=== PATIENT | female | born 1990 | race Caucasian/White ===

== ENCOUNTER 2020-01-17 12:47 | Outpatient (CLI) | payer OTHER, SELFPAY ==
--- NOTE | ~2020-01-17 | US_ITS ---
EXAMINATION: US OB /maternal detail DATE: 01/17/2020 13:48 INDICATION: anatomic survey. TECHNIQUE: Real-time ultrasound of the pelvis was performed. COMPARISON: Ultrasound 10/26/2019 FINDINGS: There is a single living fetus in breech presentation. The placenta is fundal and posterior. h eart rate is moderate 54 beats per minute (bpm). The amniotic fluid volume is subjectively normal. The following biometric data were obtained: Biparietal diameter (BPD): 4.6 cm; head circumference (HC): 17.3 cm; abdominal circumference (AC): 15 .6 cm; femur length (FL): 3.0 cm. These measurements are concordant. Estimated weight is 330 g +/- 50 g, which correlates with 41st percentile when 06/04/20 is used a s estimated date of delivery. As single measurements, these parameters are each equal to the following estimated gestational ages: BPD: 19 weeks 6 days. HC: 19 weeks 6 days. AC: 20 weeks 5 days. FL: 19 weeks 2 days. estimated gestational age based solely on measurements from this exam is 20 weeks 0 days +/- 1 weeks 3 days. The cerebral ventricles, cerebellum, cisterna magna, nuchal fold, and visualized portions of the spin e are normal. The heart is normal. The diaphragm, stomach, kidneys, and bladder are normal. There are two umbilical arteries to yield a 3-vessel cord. The cord insertion is normal. IMPRESSION: 1. Single living fetus in breech presentation. 2. Estimated weight is 330 g +/- 50 g, which correlates with 41st percentile when 06/04/20 is us ed as estimated date of delivery. Note that the ultrasound from 10/26/2019 demonstrated an estimated d ate of delivery of 06/06/2020. Reviewed, dictated and finalized at location A. IMPRESSION: 1. Single living fetus in breech presentation. 2. Estimated weight is 330 g +/- 50 g, which correlates with 41st percen tile when 06/04/20 is used as estimated date of delivery. Note that the ultrasoun d from 10/26/2019 demonstrated an estimated date of delivery of 06/06/2020.
== END 2020-01-17 12:48 | disposition home or self-care (01) ==
LOC: ANHIMG 12:55
PROVIDERS: Visit Provider Obstetrics & Gynecology Gynecology
DX: O32.1XX0 Maternal care for breech presentation, not applicable or unspecified (principal); Z3A.20 20 weeks gestation of pregnancy
CPT/HCPCS: 76805

== ENCOUNTER 2020-05-23 11:59 | Outpatient (CLI) | payer OTHER, SELFPAY ==
[2020-05-23] VITALS (9 sets, daily range): BP systolic 132–146; BP diastolic 72–87; PULSE 68–76
[2020-05-23 13:00] LABS: Basophils Percent Auto 0.3 % (0.2-1.2); Eosinophils Percent Auto 0.5 % (0-4.4); Hematocrit 37.6 % (37.0-47.0); Hemoglobin 12.7 g/dL (12.0-15.0); Immature Granulocyte Absolute 0.04 K/mm3 (0.00-0.031); Immature Granulocyte Percent A 0.5 % (0-0.5); Immature Platelet Fraction Pct 19.4 % (0.9-11.2); Lymphocytes Absolute Auto 1.85 K/mm3 (0.9-3.2); Lymphocytes Percent Auto 25.1 % (18.3-44.2); Mean Corpuscular HGB Conc 33.8 g/dl (32-36); Mean Corpuscular Hemoglobin 29.1 pg (26-34); Mean Corpuscular Volume 86.2 fl (80-100); Mean Platelet Volume 13.5 fl (7.4-10.4); Monocytes Absolute Auto 0.6 K/mm3 (0.1-0.6); Monocytes Percent Auto 7.7 % (2.6-8.5); Neutrophils Absolute Auto 4.8 K/mm3 (1.3-6.7); Neutrophils Percent Auto 65.9 % (45.5-73.1); Platelet Count Result 144 k/mm3 (150-375); Red Blood Count 4.36 M/mm3 (4.2-5.4); Red Cell Distribution Width 13.5 % (11.5-14.5); White Blood Count 7.4 K/mm3 (4.5-10.0)
[2020-05-23 13:04] LABS: Add Urine Microscopic? YES; Appearance Urine Clear (Clear); Bilirubin Urine Negative (Negative); Blood Urine Negative (Negative); Color Urine Yellow (Yellow); Glucose Urine UA Negative (Negative); Ketones Urine Negative (Negative); Leukocyte Esterase Ur Negative LEU/UL (NEGATIVE); Mucus Urine Rare /lpf; Nitrate Urine Negative (Negative); Protein Urine 2+ mg/dL (Negative); RBC Urine 0-2 /hpf (0-2); Specific Grav Ur 1.015 (1.001-1.035); Squamous Epithelial Cell Urine Occasional /hpf (Few); Urobilinogen Urine Negative mg/dL (<2.0); WBC Urine 0-3 /hpf (0-3)
[2020-05-23 13:06] LABS: Total Protein Urine Random 50 mg/dL
[2020-05-23 13:11] LABS: Alanine Aminotransferase 18 U/L (4-35); Albumin Level 3.2 g/dL (3.5-5.1); Alkaline Phosphatase 135 U/L (38-126); Anion Gap 6 mmol/L (8-16); Aspartate Amino Transferase 26 U/L (14-36); Bilirubin,Total 0.3 mg/dL (0.2-1.3); Blood Urea Nitrogen 6 mg/dL (7-17); Calcium 8.7 mg/dL (8.4-10.2); Carbon Dioxide 21 mmol/L (22-30); Chloride 107 mmol/L (98-107); Estimated Glomerular Filt Rate > 60; Glucose 122 mg/dL (65-105); Potassium 3.6 mmol/L (3.4-5.0); Sodium 134 mmol/L (137-145); Uric Acid 5.5 mg/dL (2.5-7.5)
== END 2020-05-23 14:52 | disposition home or self-care (01) ==
LOC: ANHOBOP 12:02 → ANHOBPP 12:04
PROVIDERS: Visit Provider Obstetrics & Gynecology
DX: O13.9 Gestational [pregnancy-induced] hypertension without significant proteinuria, unspecified trimester (principal)
CPT/HCPCS: 36415; 59025; 80053; 81001; 82570; 84156; 84550; 85025; 85055; 87077; 87086; 87088; 99199

== ENCOUNTER 2020-05-30 11:27 | Inpatient (IN) | payer OTHER, SELFPAY ==
[2020-05-30] VITALS (168 sets, daily range): BP systolic 87–176; BP diastolic 58–132; PULSE 25–219; TEMP 36.1–36.8; O2SAT 76–100; BMI 43.2
--- NOTE | 2020-05-30 13:02 | P.HP_ITS ---
Obstetrics - Admit Note Admission Note: AROM clear fluid / record reviewed. No pertinent additions to the history and/or any subsequent changes in the physical findings that are not consistent with the expected course of the were found. Additions to the history and/or subsequent changes in the physical findings anita nichols. None.
[2020-05-30 13:11] LABS: Basophils Percent Auto 0.3 % (0.2-1.2); Eosinophils Percent Auto 0.5 % (0-4.4); Hematocrit 36.7 % (37.0-47.0); Hemoglobin 12.6 g/dL (12.0-15.0); Immature Granulocyte Absolute 0.04 K/mm3 (0.00-0.031); Immature Granulocyte Percent A 0.5 % (0-0.5); Immature Platelet Fraction Pct 21.4 % (0.9-11.2); Lymphocytes Percent Auto 23.2 % (18.3-44.2); Mean Corpuscular HGB Conc 34.3 g/dl (32-36); Mean Corpuscular Hemoglobin 29.2 pg (26-34); Mean Corpuscular Volume 85.2 fl (80-100); Mean Platelet Volume 13.3 fl (7.4-10.4); Monocytes Absolute Auto 0.7 K/mm3 (0.1-0.6); Monocytes Percent Auto 8.9 % (2.6-8.5); Neutrophils Absolute Auto 5.2 K/mm3 (1.3-6.7); Neutrophils Percent Auto 66.6 % (45.5-73.1); Platelet Count Result 143 k/mm3 (150-375); Red Blood Count 4.31 M/mm3 (4.2-5.4); Red Cell Distribution Width 13.5 % (11.5-14.5); White Blood Count 7.8 K/mm3 (4.5-10.0)
[2020-05-30] MEDS: OXYTOCIN 30 UNITS/NS 500 ML 30 UNITS/500 ML BAG IV CONT (13:15)
[2020-05-30] MEDS: LACTATED RINGERS 1,000 ML 125 ML IV CONT ×4 (13:15→20:44)
[2020-05-30 13:21] LABS: Alanine Aminotransferase 16 U/L (4-35); Albumin Level 3.1 g/dL (3.5-5.1); Alkaline Phosphatase 136 U/L (38-126); Anion Gap 5 mmol/L (8-16); Aspartate Amino Transferase 32 U/L (14-36); Bilirubin,Total 0.2 mg/dL (0.2-1.3); Blood Urea Nitrogen 10 mg/dL (7-17); Calcium 9.1 mg/dL (8.4-10.2); Carbon Dioxide 21 mmol/L (22-30); Chloride 107 mmol/L (98-107); Estimated CRCL calculation 159 ml/min; Estimated Glomerular Filt Rate > 60; Glucose 84 mg/dL (65-105); Potassium 3.8 mmol/L (3.4-5.0); Sodium 133 mmol/L (137-145)
--- NOTE | 2020-05-30 13:26 | WPDOBADMIT ---
Obstetrics - Admit Note Admission Note: record reviewed. No pertinent additions to the history and/or any subsequent changes in the physical findings that are not consistent with the expected course of the were found. Additions to the history and/or subsequent changes in the physical findings follow. None.Here for MIL. cervix ft/50/-3 Attempted AROM and no initial fluid but per RN,shortly after, clear fluid noted. FHTs reactive Seen at 0750
[2020-05-30 14:27] LABS: Uric Acid 5.4 mg/dL (2.5-7.5)
--- NOTE | 2020-05-30 14:29 | WPDANESEPPF ---
Anes - Initial Pre Proc Eval Procedure: labor epidural Date/Time: 05/30/20 14:29 Surgeon: Kevon Pimentel MD Pre Op Diagnosis: labor pain Pre Op Diagnosis: Induction of Labor Patient Data Age: 29 Gender: F Height: 1.68 m Weight: 121.5 kg Last Vital Signs Temp 36.1 C L 05/30/20 13:00 Pulse 58 L 05/30/20 14:21 BP 161/98 H 05/30/20 14:21 Pulse Ox 100 05/30/20 14:21 Allergies Allergy/AdvReac Type Severity Reaction Status Date / Time No Known Allergies Allergy Verified 05/10/20 12:34 Home Medications Medication Instructions Recorded Confirmed Type PNV cmb#95-ferrous fumarate-FA 1 tablet PO DAILY 05/10/20 05/10/20 History [] aspirin [Adult Low Dose Aspirin] 81 mg PO DAILY 05/10/20 05/10/20 History calcium carbonate-vitamin D3 1 cap PO DAILY 05/10/20 05/30/20 History [Calcium 600 + D(3)] docusate sodium [Colace] 100 mg PO DAILY 05/10/20 05/10/20 History ergocalciferol (vitamin D2) 1,250 mcg PO WEEKLY 05/10/20 05/10/20 History [Vitamin D2] Laboratory Tests 05/30/20 05/30/20 05/30/20 12:40 12:41 12:41 WBC 7.8 K/mm3 K/mm3 (4.5-10.0) RBC 4.31 M/mm3 M/mm3 (4.2-5.4) Hgb 12.6 g/dL g/dL (12.0-15.0) Hct 36.7 % L % (37.0-47.0) MCV 85.2 fl fl (80-100) MCH 29.2 pg pg (26-34) MCHC 34.3 g/dl g/dl (32-36) RDW 13.5 % % (11.5-14.5) Plt Count 143 k/mm3 L k/mm3 (150-375) MPV 13.3 fl H fl (7.4-10.4) Immature Gran % (Auto) 0.5 % % (0-0.5) Neut % (Auto) 66.6 % % (45.5-73.1) Lymph % (Auto) 23.2 % % (18.3-44.2) Josephine % (Auto) 8.9 % H % (2.6-8.5) Eos % (Auto) 0.5 % % (0-4.4) Baso % (Auto) 0.3 % % (0.2-1.2) Lymph # (Auto) 1.80 K/mm3 K/mm3 (0.9-3.2) Josephine # (Auto) 0.7 K/mm3 H K/mm3 (0.1-0.6) Eos # (Auto) 0.0 K/mm3 K/mm3 (0-0.3) Baso # (Auto) 0.0 K/mm3 K/mm3 (0.0-0.1) Abs Immat Gran (auto) 0.04 K/mm3 H K/mm3 (0.00-0.031) Absolute Neuts (auto) 5.2 K/mm3 K/mm3 (1.3-6.7) Absolute Nucleated RBC 0.0 K/mm3 K/mm3 (0.0-0.012) Nucleated RBC % 0.0 % % (0.0-0.2) % Immature Plt Fraction 21.4 % H % (0.9-11.2) Sodium 133 mmol/L L mmol/L (137-145) Potassium 3.8 mmol/L mmol/L (3.4-5.0) Chloride 107 mmol/L mmol/L (98-107) Carbon Dioxide 21 mmol/L L mmol/L (22-30) Anion Gap 5 mmol/L L mmol/L (8-16) BUN 10 mg/dL mg/dL (7-17) Creatinine 0.60 mg/dL L mg/dL (0.7-1.0) Estim Creat Clear Calc 159 ml/min ml/min Estimated GFR > 60 (59 - ) Glucose 84 mg/dL mg/dL (65-105) Uric Acid 5.4 mg/dL mg/dL (2.5-7.5) Calcium 9.1 mg/dL mg/dL (8.4-10.2) Total Bilirubin 0.2 mg/dL mg/dL (0.2-1.3) AST 32 U/L U/L (14-36) ALT 16 U/L U/L (4-35) Alkaline Phosphatase 136 U/L H U/L (38-126) Total Protein 6.0 g/dL L g/dL (6.3-8.2) Albumin 3.1 g/dL L g/dL (3.5-5.1) RPR 05/30/20 12:41 WBC RBC Hgb Hct MCV MCH MCHC RDW Plt Count MPV Immature Gran % (Auto) Neut % (Auto) Lymph % (Auto) Josephine % (Auto) Eos % (Auto) Baso % (Auto) Lymph # (Auto) Josephine # (Auto) Eos # (Auto) Baso # (Auto) Abs Immat Gran (auto) Absolute Neuts (auto) Absolute Nucleated RBC Nucleated RBC % % Immature Plt Fraction Sodium Potassium Chloride Carbon Dioxide Anion Gap BUN Creatinine Estim Creat Clear Calc Estimated GFR Glucose Uric Acid Calcium Total Bilirubin AST ALT Alkaline Phosphatase Total Protein
[2020-05-30] MEDS: ONDANSETRON INJ 4 MG/2 ML VIAL IV PUSH (19:12)
[2020-05-30] MEDS: TERBUTALINE SULFATE 1 MG/ML VIAL (19:32)
[2020-05-30] MEDS: diphenhydrAMINE HCl INJ 50 MG/ML VIAL 25 MG IV PUSH (20:10)
[2020-05-30] MEDS: SODIUM CHLORIDE 0.9% IV 300 ML 600 ML I-UTERINE (20:10)
[2020-05-30] MEDS: FAMOTIDINE 20 MG/2 ML VIAL IV PUSH (20:35)
[2020-05-30] MEDS: SODIUM CHLORIDE 0.9% IV 1,000 ML 150 ML I-UTERINE (20:50)
[2020-05-31] VITALS (104 sets, daily range): BP systolic 128–158; BP diastolic 56–108; PULSE 33–132; RESP 16–18; TEMP 36.2–37.1; O2SAT 81–100
[2020-05-31] MEDS: SODIUM CHLORIDE 0.9% IV 1,000 ML 150 ML I-UTERINE (01:43)
--- NOTE | 2020-05-31 06:20 | PM.OBPRVD ---
OB - Delivery Note Procedure Delivery date: 05/31/20 events: Induced HTN and Labor Induction Intrapartal events: None Induction method: AROM and per pitocin protocol Delivery monitor: external FHT, external uterine, internal FHT and internal uterine Route of delivery: Laceration description: Perineal - 1st Degree Delivery repair: vicryl Specimen: Yes Estimated blood loss (mL): 100 Anesthesia type: Epidural Disposition: floor Baby Date of : 05/31/20 Time of : 06:01 Weeks of gestation at delivery: 39 gender: Female Weight (pounds): 7 Weight (ounces): 11 presentation: vertex position: Left Occiput Anterior Placenta delivery description: Spontaneous cord vessel description: 3 Vessels score one minute: 9 score five minutes: 9
[2020-05-31] MEDS: OXYTOCIN 30 UNITS/NS 500 ML 30 UNITS/500 ML BAG 125 UNITS IV CONT (06:51)
[2020-05-31] MEDS: IBUPROFEN 600 MG TABLET PO ×3 (08:13→23:32)
[2020-05-31] MEDS: BENZOCAINE 20% AER SPR (*SP) 56 GM CAN 1 SPRAY TOPICAL (08:13)
[2020-05-31] MEDS: WITCH HAZEL 40 PADS 1 PAD TOPICAL (08:13)
[2020-05-31 10:01] LABS: Rapid Plasma Reagin Non-Reactive (NonReactive)
--- NOTE | 2020-05-31 12:21 | PC.NURSE ---
0910-Patient transferred to post room #286 via wheelchair. Support person present. Oriented to unit, room, information board, rooming in, admission packet and security measures. Patient verbalizes understanding.
--- NOTE | 2020-05-31 13:10 | PC.NURSE ---
Consulted with patient, mother states is eagerly latching with assist from nurse. Mother pumped and bottle fed with last child. Reviewed infant feeding cues, frequencies, duration of feedings, feeding elimination flow sheet, and signs of adequate intake. Demonstrated stimulation techniques to wake for feeding. Assisted with to breast. Reviewed positioning/alignment in cross cradle, holding breast in U hold and guided asymmetrical latch on. Discussed rational for each. was able to latch correctly. Infant nursed eagerly, with steady draws and occasional swallowing noted. Reviewed signs of a correct latch, effective nursing and suck swallow ratio. Infant was able to maintain latch without discomfort to mother. Nipple care reviewed. Advised to stimulate while feeding to keep infant awake and nursing effectively for increased intake and to assist with maintaining deep latch. Instructed mother to call out for RN assistance if she is unable to latch infant for feeding or she has discomfort with nursing. Instructed feeding should be initiated three hours from start of last feeding or if feeding cues are noted before. Mother voiced understanding of information shared. Reviewed transition to breast milk, signs of adequate intake, and engorgement/relief. Instructed to call ICP if intake/output less than required. Reviewed regular medications mother is taking. Information provided per Peggy. Reviewed community resources on the [facility] website and in the Mom/Baby guide. Information on outpatient services provided. Mother has no further questions at this time.
[2020-05-31] MEDS: DOCUSATE SODIUM 100 MG CAPSULE PO (17:16)
--- NOTE | 2020-05-31 19:30 | PC.NURSE ---
Patient to view the discharge video Mother & Baby Care, The First Two Weeks online. Patient was given the opportunity and encouraged to ask questions. Patient verbalized understanding of information shared and has been given the mother/baby guide for home reference.
[2020-06-01] MEDS: IBUPROFEN 600 MG TABLET PO ×2 (04:32→10:52)
[2020-06-01 05:59] LABS: Hematocrit 32.3 % (37.0-47.0); Hemoglobin 10.6 g/dL (12.0-15.0)
[2020-06-01] MEDS: WITCH HAZEL 40 PADS 1 PAD TOPICAL (07:38)
[2020-06-01] MEDS: BENZOCAINE 20% AER SPR (*SP) 56 GM CAN 1 SPRAY TOPICAL (07:38)
[2020-06-01] MEDS: MULTIVIT/MIN/PREN/FOL AC/IRON TABLET 1 TAB PO (07:39)
[2020-06-01] MEDS: DOCUSATE SODIUM 100 MG CAPSULE PO (07:39)
--- NOTE | 2020-06-01 07:41 | WPDANLDPN2 ---
Anes-Prog Note L&D Date/Time: 06/01/20 07:41 Comfortable throughout: labor and delivery Neuraxial method: epidural Epidural/Spinal procedure site: clean & non-tender Neuro status: Neuro function grossly intact. Cardiovascular status: normal Respiratory status: normal Airway patency: baseline Mental status: baseline Post-Op hydration status: normal Vital Signs: Last Vital Signs Temp 36.2 C L 05/31/20 19:30 Pulse 82 05/31/20 19:30 Resp 18 05/31/20 19:30 BP 130/85 05/31/20 19:30 Pulse Ox 100 05/31/20 19:30 Post-procedural complaints: none Patient feedback: Patient satisfied with anesthetic care.
[2020-06-01 08:00] VITALS: BP 153/97; PULSE 76; RESP 18; TEMP 36.2; O2SAT 100
--- NOTE | 2020-06-01 11:42 | PM.OBPNVD ---
OB - PN: Subj Subjective Date/time seen: 06/01/20 11:42 doing well this am no complaints. desires home denies ROJAS and vision changes OB - PN: Obj Data Labs CBC & Chem 7: 06/01/20 04:29 05/30/20 12:40 Labs: Laboratory Results - last 24 hr 06/01/20 04:29 Hgb 10.6 L Hct 32.3 L OB - PN A/P Assessment and Plan (1) (normal spontaneous vaginal delivery): Code(s): O80 - Encounter for full-term uncomplicated delivery Status: Acute Assessment and Plan: doing well (2) PIH ( induced hypertension): Code(s): O13.9 - Gestational [-induced] hypertension without significant proteinuria, unspecified trimester Status: Acute Assessment and Plan: plan labetalol 200mg po BID with BP checck in 1 week and monitoring at home. Time Spent With Patient Time: Total time spent is greater than 50% in coordination of care (as documented) at patient's floor/unit and/or counseling patient: Exam GI: Other: ff at umbilicus, edema in abdomen, and lower extremities
--- NOTE | 2020-06-01 13:21 | PC.NURSE ---
Self care and infant care discharge instructions given including follow up visit date and time. Pt. verbalized understanding. No questions or concerns voiced. Very pleasant and cooperative. at side.
[2020-06-01 14:28] VITALS: PULSE 74
[2020-06-01] MEDS: LABETALOL HCL 100 MG TABLET 200 MG PO (14:28)
[2020-06-01 16:00] VITALS: BP 140/85; PULSE 68; RESP 18; TEMP 36.7
[2020-06-03 11:35] VITALS: BP 150/98; PULSE 65; RESP 18; TEMP 37.2; O2SAT 100
--- NOTE | 2020-06-24 11:02 | PM.OBDSVD ---
DS: Admitting Diagnosis Admitting Diagnosis Admitting Diagnosis: Induction of Labor OB - DS: Summary OB Procedures : PIH Mgmt OB Procedures Intrapartum: Spontaneous Vag Delivery OB Procedures: : None Time Spent with Patient Time attestation: Total time spent providing and/or coordinating discharge services: DS: Data Data Completed and Pending Completed studies during hospitalization: Pending at discharge 05/31/20 07:47 Surgical [PTH] Routine Discharge Plan Discharge Consulting providers: Don Foster Discharging Clinician: Kevon Pimentel Patient Disposition: Home, Self-Care Activity: may shower and pelvic rest Diet: regular Discharge Instructions: Education: Mom and Baby Guide Given to: Mother Follow-Up: Call your delivering provider's office for an appointment to be seen in: 1 Week Mom and baby should come to the [facility] for the follow-up appointment. Appointment Date/Time: June 03, 2020 at 11:00 am What to expect at your follow-up visit: Blood Pressure Check Physical Assessment Call [phone] if you are unable to keep your appointment time. BREAST CARE: * Wear a snug supportive bra. * For engorgement discomfort: Breast Feeding: * Apply warm moist washcloths * Express milk as needed to relieve engorgement * Wear loose clothing * For sore nipples: * Identify correct latch-on * Apply warm moist washcloths before and after nursing * Air dry nipples after nursing * May apply Lansinoh cream to nipples EPISIOTOMY/PERINEAL CARE: * Until bleeding stops, use your [place] bottle after urinating * Change your pad frequently throughout the day * You may take sitz baths several times a day (fill your bathtub with warm water and soak for 20 minutes.) Do NOT bathe in the water * No tub baths until seen by your physician - You may shower ACTIVITY: * Rest as much as possible. * Do not exercise or lift anything heavier than your baby (such as laundry or other children.) * Do not put anything into the vagina. No douching, tampons, or sexual activity until seen by physician. NOTIFY PHYSICIAN IF YOU HAVE ANY QUESTIONS OR IF ANY OF THE FOLLOWING SYMPTOMS OCCUR: * If your episiotomy becomes red, swollen, or more painful than what you have experienced in the hospital. * If your vaginal bleeding becomes foul smelling. * If your vaginal bleeding becomes more heavy than a period or if your bleeding changes from pink to bright red. However, you may pass an occasional walnut-sized clot once or twice for the first week . * If you experience a sharp, shooting pain in you calves. * If you discover a hard, reddened area on your breast or if you experience flu-like symptoms. DIET: * Eat regular, well-balanced meals. * Drink plenty of fluids daily. If , drink to thirst. Patient Instructions: Antibiotic Form Stand Alone Forms: General Discharge Information Follow-up/Referrals: Kevon Pimentel MD [Physician] - 1 Week Discharge Medications: New Dermoplast (with menthol) 20-0.5 % Aerosol 1 spray topical PRN PRN (Reason: Perineal Discomfort) RF: 0 ibuprofen 600 mg Tablet 600 mg PO Q6H PRN (Reason: Cramping) RF: 0 [id number]-[id number] Cream 1 applic topical PRN PRN (Reason: Sore Nipples) RF: 0 Preparation H (Sophia Maki) 50 % Pads, Medicated 1 pad topical PRN PRN (Reason: Perineal Discomfort) RF: 0 Continued ergocalciferol (vitamin D2) [Vitamin D2] 1,250 mcg (50,000 unit) Capsule 1,250 mcg PO WEEKLY RF: 0 Calcium 600 + D(3) 600 mg calcium- 200 unit Capsule 1 cap PO DAILY RF: 0 PNV cmb#95-ferrous fumarate-FA [] 28 mg iron- 800 mcg Tablet 1 tablet PO DAILY RF: 0 Discontinued aspirin [Adult Low Dose Aspirin] 81 mg Tablet,Delayed Release (Dr/Ec) 81 mg PO DAILY RF: 0 docusate sodium [Colace] 100
== END 2020-06-01 17:06 | disposition home or self-care (01) | DRG 807 ==
LOC: ANHLDR 11:42 → ANHOB2 05-31 09:31
PROVIDERS: Admitting Provider Obstetrics & Gynecology; Visit Provider Obstetrics & Gynecology
DX: O13.4 Gestational [pregnancy-induced] hypertension without significant proteinuria, complicating childbirth (principal); Z37.0 Single live birth; Z3A.39 39 weeks gestation of pregnancy; O36.8330 Maternal care for abnormalities of the fetal heart rate or rhythm, third trimester, not applicable or unspecified; O70.0 First degree perineal laceration during delivery; O99.214 Obesity complicating childbirth; E66.01 Morbid (severe) obesity due to excess calories
CPT/HCPCS: 36415; 80053; 84550; 85014; 85018; 85025; 85055; 86592; 86850; 86900; 86901; 88307; A9270; J1200; J2405; J2590; J2795; J3105; J7030; J7120

== ENCOUNTER 2020-06-03 12:06 | Observation (INO) | payer OTHER, SELFPAY ==
[2020-06-03] VITALS (72 sets, daily range): BP systolic 110–196; BP diastolic 62–101; PULSE 52–87; RESP 18; TEMP 36.8; O2SAT 95–100
[2020-06-03 12:47] LABS: Basophils Percent Auto 0.3 % (0.2-1.2); Eosinophils Absolute Auto 0.2 K/mm3 (0-0.3); Hematocrit 29.7 % (37.0-47.0); Hemoglobin 9.9 g/dL (12.0-15.0); Immature Granulocyte Absolute 0.25 K/mm3 (0.00-0.031); Immature Granulocyte Percent A 4.1 % (0-0.5); Lymphocytes Absolute Auto 1.26 K/mm3 (0.9-3.2); Lymphocytes Percent Auto 20.7 % (18.3-44.2); Mean Corpuscular HGB Conc 33.3 g/dl (32-36); Mean Corpuscular Hemoglobin 29.3 pg (26-34); Mean Corpuscular Volume 87.9 fl (80-100); Mean Platelet Volume 12.5 fl (7.4-10.4); Monocytes Absolute Auto 0.6 K/mm3 (0.1-0.6); Monocytes Percent Auto 9.7 % (2.6-8.5); Neutrophils Absolute Auto 3.8 K/mm3 (1.3-6.7); Neutrophils Percent Auto 62.2 % (45.5-73.1); Platelet Count Result 149 k/mm3 (150-375); Red Blood Count 3.38 M/mm3 (4.2-5.4); Red Cell Distribution Width 14.4 % (11.5-14.5); White Blood Count 6.1 K/mm3 (4.5-10.0)
[2020-06-03 13:00] LABS: Alanine Aminotransferase 14 U/L (4-35); Alkaline Phosphatase 98 U/L (38-126); Anion Gap 3 mmol/L (8-16); Aspartate Amino Transferase 27 U/L (14-36); Bilirubin,Total 0.2 mg/dL (0.2-1.3); Blood Urea Nitrogen 8 mg/dL (7-17); Carbon Dioxide 23 mmol/L (22-30); Chloride 110 mmol/L (98-107); Estimated Glomerular Filt Rate > 60; Glucose 99 mg/dL (65-105); Potassium 3.8 mmol/L (3.4-5.0); Sodium 136 mmol/L (137-145); Uric Acid 4.6 mg/dL (2.5-7.5)
--- NOTE | 2020-06-03 14:38 | PC.NURSE ---
Vascular access here to place IV.
[2020-06-03] MEDS: MAGNESIUM SULF 4 GM/WATER100ML 4 GM/100 ML BAG IVPB (15:07)
[2020-06-03] MEDS: LABETALOL HCL INJ 100 MG/20 ML VIAL 10 MG IV PUSH (15:08)
[2020-06-03] MEDS: hydrALAZINE HCL 20 MG/ML VIAL 5 MG IV PUSH (18:16)
[2020-06-03] MEDS: IBUPROFEN 600 MG TABLET PO (18:16)
[2020-06-03] MEDS: MAGNESIUM SULF 20GM/WATER500ML 500 ML 50 MG IV CONT (18:25)
[2020-06-03] MEDS: LABETALOL HCL 100 MG TABLET 200 MG PO (18:45)
[2020-06-03] MEDS: hydrALAZINE HCL 20 MG/ML VIAL 10 MG IV PUSH (18:57)
[2020-06-03] MEDS: LACTATED RINGERS 1,000 ML 75 ML IV CONT (23:07)
[2020-06-04] VITALS (11 sets, daily range): BP systolic 119–152; BP diastolic 64–90; PULSE 70–88; RESP 16; TEMP 36.6–36.9
[2020-06-04] MEDS: MAGNESIUM SULF 20GM/WATER500ML 500 ML 50 MG IV CONT (02:07)
[2020-06-04] MEDS: IBUPROFEN 600 MG TABLET PO (02:11)
[2020-06-04] MEDS: LACTATED RINGERS 1,000 ML 75 ML IV CONT (04:04)
[2020-06-04] MEDS: LABETALOL HCL 100 MG TABLET 200 MG PO (06:57)
--- NOTE | 2020-06-04 09:43 | PC.NURSE ---
0930--Magnesium sulfate DC'd per MD orders. IV to saline lock at this time.
--- NOTE | 2020-06-04 13:17 | PM.IMHP ---
H&P: HPI History of Present Illness Date/Time: 06/04/20 13:17 Chief complaint: PP PIH Narrative: Radha Weeks is a 29 year old female admitted by Dr. Pimentel yesterday with pp preeclampsia. Patient given Iv Hydralazine and then changed to po Labetalol. This am patient states she feels much better. [facility] Past Medical History Medical History (Updated 06/01/20 @ 11:44 by Kevon Pimentel MD) (normal spontaneous vaginal delivery) PIH ( induced hypertension) PIH ( induced hypertension) Family History Family History (Updated 05/10/20 @ 12:38 by Cruz Estrada RN) Grandparent Hypertension Diabetes mellitus Acute myocardial infarction Leukemia Social History Social History Smoking status: Never smoker Second hand tobacco smoke exposure: No Substance use: never Spiritual care concerns: No Meds Home Medications and Allergies Home Medications Medication Instructions Recorded Confirmed Type Calcium 600 + D(3) 1 cap PO DAILY 05/10/20 05/30/20 History PNV cmb#95-ferrous fumarate-FA 1 tablet PO DAILY 05/10/20 05/10/20 History [] ergocalciferol (vitamin D2) 1,250 mcg PO WEEKLY 05/10/20 05/10/20 History [Vitamin D2] Dermoplast (with menthol) 1 spray TOPICAL PRN PRN g 06/01/20 Rx [id number] 1 applic TOPICAL PRN PRN g 06/01/20 Rx Preparation H (Witch Shanthi) 1 pad TOPICAL PRN PRN ea 06/01/20 Rx ibuprofen 600 mg PO Q6H PRN tablet 06/01/20 Rx labetalol 200 mg PO TID tablet 06/04/20 Rx Allergies Allergy/AdvReac Type Severity Reaction Status Date / Time No Known Allergies Allergy Verified 05/10/20 12:34 Vital Signs Vital Signs - 24 hr 06/03/20 13:31 06/03/20 13:46 06/03/20 14:01 Temperature Pulse Rate 55 L 54 L 53 L Respiratory Rate Blood Pressure 170/93 H 184/92 H 186/90 H Pulse Oximetry 06/03/20 14:16 06/03/20 15:01 06/03/20 15:08 Temperature Pulse Rate 54 L 54 L 52 L Respiratory Rate Blood Pressure 180/93 H 186/93 H Pulse Oximetry 98 06/03/20 15:13 06/03/20 15:15 06/03/20 15:16 Temperature Pulse Rate 53 L 56 L Respiratory Rate 18 Blood Pressure 196/101 H 196/101 H Pulse Oximetry 98 98 06/03/20 15:18 06/03/20 15:23 06/03/20 15:28 Temperature Pulse Rate Respiratory Rate Blood Pressure Pulse Oximetry 99 98 100 06/03/20 15:33 06/03/20 15:36 06/03/20 15:38 Temperature Pulse Rate 62 Respiratory Rate Blood Pressure 175/89 H Pulse Oximetry 95 98 06/03/20 15:44 06/03/20 16:00 06/03/20 16:02 Temperature Pulse Rate 58 L 57 L Respiratory Rate Blood Pressure 189/94 H 184/92 H Pulse Oximetry 98 06/03/20 16:04 06/03/20 16:06 06/03/20 16:11 Temperature Pulse Rate 61 60 63 Respiratory Rate Blood Pressure 173/93 H 173/99 H 175/91 H Pulse Oximetry 06/03/20 16:16 06/03/20 16:21 06/03/20 16:26 Temperature Pulse Rate 61 59 L 59 L Respiratory Rate Blood Pressure 178/90 H 180/87 H 166/83 H Pulse Oximetry 06/03/20 16:31 06/03/20 16:57 06/03/20 17:01 Temperature Pulse Rate 64 63 61 Respiratory Rate Blood Pressure 180/86 H 133/73 134/62 Pulse Oximetry 06/03/20 17:38 06/03/20 17:41 06/03/20 17:46 Temperature Pulse Rate 70 59 L 58 L Respiratory Rate Blood Pressure 151/91 H 156/81 H 161/79 H Pulse Oximetry 06/03/20 17:51 06/03/20 17:56 06/03/20 18:02 Temperature Pulse Rate 55 L 58 L 60 Respiratory Rate Blood Pressure 164/90 H 182/87 H 155/86 H Pulse Oximetry 06/03/20 18:06 06/03/20 18:11 06/03/20 18:16 Temperature Pulse Rate 57 L 56 L 57 L Respiratory Rate Blood Pressure 130/71 132/78 160/83 H Pulse Oximetry 06/03/20 18:26 06/03/20 18:31 06/03/20 18:36 Temperature Pulse Rate 59 L 59 L 58 L Respiratory Rate Blood Pressure 154/79 H 168/76 H 160/72 H Pulse Oximetry 06/03/20 18:45 06/03/20 18:46 06/03/20 18:51 Temperature Pulse Rate 67 62 57 L Re
== END 2020-06-04 13:45 | disposition home or self-care (01) ==
LOC: ANHOBOP 12:11 → ANHOBPP 12:11 → ANHOBOP 19:32 → ANHOBPP 06-04 09:39
PROVIDERS: Admitting Provider Obstetrics & Gynecology; Visit Provider Obstetrics & Gynecology Gynecology
DX: O13.5 Gestational [pregnancy-induced] hypertension without significant proteinuria, complicating the puerperium (principal)
CPT/HCPCS: 36415; 80053; 84550; 85025; 96361; 96365; 96366; 96375; 96376; A9270; G0378; G0379; J0360; J3475; J7120